=== PATIENT | male | born 1965 | race Caucasian/White ===

== ENCOUNTER 2021-04-12 11:00 | Emergency (ER) | payer OTHER ==
[2021-04-12] MEDS ORDERED: IBUPROFEN600 MG PO (12:04)
== END 2021-04-12 12:08 | disposition home or self-care (01) ==
LOC: ER1 11:00
DX: S60.222A Contusion of left hand, initial encounter (principal); F17.200 Nicotine dependence, unspecified, uncomplicated; Z23 Encounter for immunization; W22.8XXA Striking against or struck by other objects, initial encounter
CPT/HCPCS: 29125; 73130; 90471; 90715; 99283